=== PATIENT | male | born 1995 | race Caucasian/White ===

== ENCOUNTER 2018-06-05 15:14 | Emergency (ER) | payer OTHER ==
[~2018-06-05] VITALS: Wt 84.3 kg
[2018-06-05 15:45] VITALS: BP 115/70; PULSE 85; RESP 20
[2018-06-05] MEDS ORDERED: LOPE2CAP PO (16:39)
[2018-06-05] MEDS ORDERED: ONDA4TAB14 PO (16:39)
[2018-06-05] MEDS ORDERED: ONDANSETRON (ODT) 4 MG TAB ODT STA (16:40)
--- NOTE | 2018-06-05 16:44 | ERD ---
ER Documentation Chief Complaint Chief Complaint vomiting, diarrhea, chills since AM. HPI This is a 23-year-old male who presents with generalized abdominal pain with vomiting nausea and diarrhea and chills that began today. His whole family is sick with similar symptoms. He is also had a mild fever. He has no testicular pain. No flank pain. No dysuria hematuria frequency. ROS All systems reviewed and are negative except as per history of present illness. Medications Home Meds Active Scripts Ondansetron (Ondansetron Odt) 4 Mg Tab.rapdis, 4 MG PO Q6H PRN for NAUSEA AND/OR VOMITING, #20 TAB Prov:NANO LAURENT PA-C 06/05/18 Loperamide Hcl* (Imodium*) 2 Mg Capsule, 2 MG PO .AFTER EA LOOSE BM PRN for DIARRHEA, #20 TAB Prov:NANO LAURENT PA-C 06/05/18 Allergies Allergies: Coded Allergies: No Known Allergy (Unverified , 06/05/18) PMhx/Soc History of Surgery: No Anesthesia Reaction: No Hx Neurological Disorder: No Hx Respiratory Disorders: No Hx Cardiac Disorders: No Hx Psychiatric Problems: No Hx Miscellaneous Medical Probl: No Hx Alcohol Use: No Hx Substance Use: No Hx Tobacco Use: No Smoking Status: Never smoker FmHx Family History: No diabetes Physical Exam Vitals Vital Signs Date Temp Pulse Resp B/P (MAP) Pulse Ox O2 O2 Flow FiO2 Time Delivery Rate 06/05/18 100.4 85 20 115/70 100 15:45 (85) Physical Exam INITIAL VITAL SIGNS: Reviewed by me GENERAL: Awake, alert and oriented x 4, well appearing, nontoxic, speaking in full sentences. No acute distress HEAD: Atraumatic NECK: Supple. No masses. Full range of motion. No meningismus. No midline tenderness. EYES: EOMI. PERRL. RESPIRATORY: Clear to auscultation bilaterally. Symmetric chest wall rise. No wheezing or rales. No accessory muscle use. CV: Regular rate and rhythm. No murmurs, rubs, or gallops. ABDOMEN: Soft, non-distended. Nontender. Negative [place]. Negative [place] point tenderness. No CVA tenderness bilaterally. No guarding. No rebound. : Deffered. Results 24 hrs Current Medications Medications Dose Sig/Ernesto Start Time Status Last (Trade) Ordered Route PRN Stop Time Admin Dose Reason Admin Ondansetron 4 mg ONCE STAT 06/05/18 DC HCl (Zofran ODT 16:40 06/05/18 Odt) 16:41 Procedures/MDM This patient is here with what is likely viral gastroenteritis. His whole family is here with similar symptoms. He has a low-grade temperature of 100.4 but his GI examination is benign. The differential diagnosis includes but is not limited to appendicitis, cholelithiasis, cholecystitis, pancreatitis, hepatitis, gastritis, peptic ulcer disease, bowel obstruction, diverticulitis, renal disease including stones, torsion, AAA, pyelonephritis, and others. He was given Zofran here. Recommend he continue to take Tylenol and Motrin at home for pain fever control and is given prescription for Zofran and Imodium. Patient counseled regarding my diagnostic impression and care plan. Prior to discharge all questions answered. Pt agrees with treatment plan and understands strict return precautions. Pt is instructed to follow up with primary care provider within 24-48 hours. Precautionary instructions provided including instructions to return to the ER if not improving or for any worsening or changing symptoms or concerns. Departure Diagnosis: Primary Impression: Viral gastroenteritis Condition: Stable Patient Instructions: Gastroenteritis, Viral (6Y-Adult) Additional Instructions: Call your primary care doctor TOMORROW for an appointment during the next 1-2 days.See the doctor sooner or return here if your condition worsens before your appointment time. NANO LAURENT PA-C June 05, 2018 16:44
== END 2018-06-05 16:50 | disposition home or self-care (01) ==
LOC: FTE 15:14
DX: A08.4 Viral intestinal infection, unspecified (principal)
CPT/HCPCS: Z7502; Z7610; 99283